=== PATIENT | male | born 1960 | race Caucasian/White ===

== ENCOUNTER → 2018-06-18 | Outpatient (CLI) | payer BC ==
[~2018-06-18] MED LIST: LISINOPRIL20 MG PO; MELOXICAM PO
--- NOTE | 2018-06-18 11:33 | Diagnostic Imaging Report ---
PROCEDURE:US LIVER COMPARISON:None. INDICATIONS:LEFT UPPER QUADRANT PAIN TECHNIQUE: Sharp-scale and color Doppler transverse and longitudinal images of the right upper quadrant of the abdomen were obtained. FINDINGS: Liver: Measures 15.6 cm in right mid-clavicular line. Increased echogenicity. No masses. Main portal vein: Measures 0.8 cm Gallbladder: No evidence of stone, wall thickening, or pericholecystic fluid. Common Bile Duct: Measures 0.3 cm Sonographic Burch's sign: Negative Right kidney: Measures 13.2 cm. Normal echogenicity. No solid masses or hydronephrosis. Simple appearing 1.4 cm anechoic cyst in the upper pole. Pancreas: Echogenic appearance diffusely. Inferior vena cava: Patent Aorta: Within normal limits Ascites: None in the right upper quadrant of the abdomen. CONCLUSION: Hepatic steatosis and borderline hepatomegaly. Echogenic appearance of the pancreas diffusely which could represent fatty replacement. Dictated by: EMMY NIXON M.D. on 06/18/2018 at 11:43 Electronically approved by: EMMY NIXON M.D. on 06/18/2018 at 11:43
== END ==
LOC: US 09:41
PROVIDERS: ATTEND Family Medicine
DX: R10.12 Left upper quadrant pain (principal)
CPT/HCPCS: 76705

== ENCOUNTER → 2018-10-03 | Outpatient (CLI) | payer BC ==
--- NOTE | 2018-10-03 10:14 | Diagnostic Imaging Report ---
Exam: Lumbar spine MRI without IV contrast History: Low back pain with numbness in right side. Comparison studies: None Technique: Sagittal and axial T2 , sagittal T1 and IR, axial spin density oblique. Intravenous contrast: None Findings: Number of lumbar vertebral bodies: 5. Alignment: Normal lordosis. Mild lumbar curvature convex to the right. Soft tissues: No T2 hyperintense inflammatory changes. Paraspinal muscles: No signal abnormalities. Well-preserved. No atrophic changes Lower thoracic cord: Normal in signal and morphology. The tip of the conus is at L1. Cauda equina: No masses. No arachnoiditis. Vertebrae: No marrow edema, infection or neoplasm. Minimal chronic depression of the superior L3 endplate with small Schmorl's node. Degenerative changes: Disc height is maintained. L1-L2: Patent canal and foramina. No disc herniation. L2-L3: Patent canal and foramina. No disc herniation. L3-L4: Symmetric disc bulge without significant canal or foraminal stenosis. No disc herniation. L4-L5: Symmetric disc bulge, thickened ligamentum flavum and mild facet arthrosis with mild canal stenosis and mild bilateral foraminal stenosis. L5-S1: Symmetric disc bulge does not result significant canal or foraminal stenosis. Partially imaged sacroiliac joints: Degenerative changes along the joints anteriorly with osteophyte production. No marrow edema or joint effusion. IMPRESSION: Mild degenerative changes with mild canal and bilateral foraminal stenosis at L4-L5. Signed by: Dr. Tao Wood M.D. on 10/03/2018 10:10 AM
== END ==
LOC: MRI 07:18
PROVIDERS: ATTEND Family Medicine
DX: M54.5 Low back pain (principal); M53.3 Sacrococcygeal disorders, not elsewhere classified; S39.012A Strain of muscle, fascia and tendon of lower back, initial encounter
CPT/HCPCS: 72148